=== PATIENT | female | born 1985 | race Caucasian/White ===

== ENCOUNTER 2019-06-21 12:45 | Emergency (ER) | payer BC, MEDICAID, OTHER ==
[2019-06-21 13:40] VITALS: BP 116/82
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
[2019-06-21 14:39] VITALS: PULSE 80
--- NOTE | 2019-06-21 14:41 | CR ---
Left elbow: 4 views left elbow were obtained. Comparison: No prior elbow study. Plate and screws are identified within the ulna compatible with old healed fracture. Joint spaces within the elbow are preserved. No joint effusion is identified. No acute fracture or other abnormality is appreciated. Impression: 1. Orthopedic hardware within the ulna. 2. Left elbow study is otherwise unremarkable. Diagnostic code #2 Study was dictated in [place] Standard Time
== END 2019-06-21 15:00 | disposition home or self-care (01) ==
LOC: JD.ED 12:45
DX: S50.02XA Contusion of left elbow, initial encounter (principal); S20.212A Contusion of left front wall of thorax, initial encounter; K21.9 Gastro-esophageal reflux disease without esophagitis; F17.210 Nicotine dependence, cigarettes, uncomplicated; Z79.899 Other long term (current) drug therapy; V47.5XXA Car driver injured in collision with fixed or stationary object in traffic accident, initial encounter
CPT/HCPCS: 73080-26-LT; 73080-LT; 99282; 99284-25

== ENCOUNTER 2019-07-10 09:06 | Emergency (ER) | payer BC ==
[2019-07-10 09:26] VITALS: BP 127/83; PULSE 108
--- NOTE | 2019-07-10 09:54 | EDM.PDOC ---
<Erin Marie - Last Filed: 07/10/19 09:45> ED HPI GENERAL MEDICAL PROBLEM - General Chief Complaint: Respiratory Problem Stated Complaint: FEVER/COUGH Time Seen by Provider: 07/10/19 09:30 Source of Information: Reports: Patient History Limitations: Reports: No Limitations - History of Present Illness INITIAL COMMENTS - FREE TEXT/NARRATIVE: Patient is a pleasant 33-year-old female who presents to the ED for complaints of a cough, chest tightness, fever, and plugged ears. She reports the cough started about eight days ago and has mainly been non-productive. She notes her chest has felt tight for the past four to five days and she has Fevers have been intermittent, with the highest temperature being 101 degrees. She last took Motrin last evening. Her ears now feel plugged and full. She reports a sore throat from the cough and nasal drainage, as well as a headache. She has tried Delsym, Motrin, and multiple home remedies with no relief of the cough. Denies chest pain, nausea, and vomiting. Of note, the patient's daughter was evaluated in the ED last evening and was diagnosed with pneumonia. Daughter's symptoms are the same as hers, but hers started a day or two before her daughter's. Chest Pain Score (Numeric/FACES): 2 - Related Data Allergies Allergy/AdvReac Type Severity Reaction Status Date / Time No Known Allergies Allergy Verified 07/10/19 09:26 Home Meds: Home Meds No122/Iron/Folic Acid [ Multi Tablet] 1 each PO DAILY 03/16/18 [History] Ranitidine [Zantac] 150 mg PO BID PRN 03/16/18 [History] Past Medical History - Past Health History Medical/Surgical History: Denies Medical/Surgical History Gastrointestinal History: Reports: GERD [employer] History: Reports: Ectopic , , Spontaneous Other [employer] History: 3 prior sections - Infectious Disease History Infectious Disease History: Reports: Chicken Pox, Influenza - Past Surgical History GI Surgical History: Reports: Cholecystectomy, Hernia Repair/Other Female Surgical History: Reports: Section, Tubal Ligation Musculoskeletal Surgical History: Reports: ORIF Social & Family History - Family History Family Medical History: Noncontributory Neurological: Reports: CVA Oncologic: Reports: Breast, Colon - Tobacco Use Smoking Status *Q: Current Every Day Smoker Years of Tobacco use: 10 Packs/Tins Daily: 0.4 - Caffeine Use Caffeine Use: Reports: Coffee - Recreational Drug Use Recreational Drug Use: No ED ROS GENERAL - Review of Systems Review Of Systems: See Below Constitutional: Reports: Fever, Chills. Denies: Weakness HEENT: Reports: Ear Pain (fullness), Sinus Problem (congestion/pain), Throat Pain. Denies: Vision Change Respiratory: Reports: Shortness of Breath (with coughing), Wheezing, Cough (non- productive) Cardiovascular: Reports: No Symptoms. Denies: Chest Pain, Edema, Lightheadedness, Syncope GI/Abdominal: Reports: No Symptoms. Denies: Abdominal Pain, Diarrhea, Nausea, Vomiting Musculoskeletal: Reports: No Symptoms. Denies: Neck Pain, Back Pain, Muscle Pain Skin: Reports: No Symptoms. Denies: Rash Neurological: Reports: Headache (occasional). Denies: Dizziness, Syncope, Weakness Psychiatric: Reports: No Symptoms ED EXAM, GENERAL - Physical Exam Exam: See Below Exam Limited By: No Limitations General Appearance: Alert, WD/WN, No Apparent Distress Eye Exam: Bilateral Eye: Normal Inspection, PERRL Ears: Normal External Exam, Normal Canal, Hearing Grossly Normal, Other ( bilateral effusions noted without erythema) Nose: Normal Inspection, Normal Mucosa, No Blood. No: Nasal Drainage Throat/Mouth: Normal Inspection, Normal Lips, Normal Teeth, Normal Gums, Normal Oropharynx, Normal Voice, Other (postnasal drainage) Head: Atraumatic, Normocephalic Neck: Normal Inspection, Supple, Non-Tender, Full Range of Motion Respiratory/Chest: No Respiratory Distress, No Accessory Muscle Use, Chest Non- Tender, Rhonchi (Right lower lobe), Wheezing (at end of expiration in bilateral upper lobes). No: Crackles, Rales, Stridor Cardiovascular: Normal Peripheral Pulses, Regular Rate, Rhythm, No Edema, No Murmur GI/Abdominal: Normal Bowel Sounds, Soft, Non-Tender, No Organomegaly, No Distention Back Exam: Normal Inspection, Full Range of Motion Extremities: Normal Inspection, Normal Range of Motion, Non-Tender, No Pedal Edema, Normal Capillary Refill Neurological: Alert, Oriented, Normal Cognition, No Motor/Sensory Deficits Psychiatric: Normal Affect, Normal Mood Skin Exam: Warm, Dry, Intact, Normal Color, No Rash Lymphatic: No Adenopathy Course - Vital Signs Last Recorded V/S: Last Vital Signs Temp 97.8 F 07/10/19 09:24 Pulse 108 H 07/10/19 09:24 Resp 18 07/10/19 09:24 BP 127/83 07/10/19 09:24 Pulse Ox 95 07/10/19 09:24 Departure - Departure Disposition: Home, Self-Care 01 Clinical Impression: Viral upper respiratory infection, Bronchitis - Discharge Information Instructions: Acute Bronchitis, Adult, [id number] Referrals: PCP,None [Primary Care Provider] - Forms: ED Department Discharge Additional Instructions: vaporizer or steam as needed,drink plenty of fluids to maintain hydration, you may safely continue to take Tylenol or Motrin as needed for discomfort. Prescription for a Zithromax and has been sent home with you. Do not fill that at this time. You may fill that in 3-5 days if cough becomes extremely productive or if cough worsening or not starting to improve within 3-5 days. Follow-up clinic as needed, return to ED as needed. Sepsis Event Note - Evaluation Sepsis Screening Result: No Definite Risk - Focused Exam Vital Signs: Vital Signs Temp Pulse Resp BP Pulse Ox 07/10/19 09:24 97.8 F 108 H 18 127/83 95 Date Exam was Performed: 07/10/19 Time Exam was Performed: 09:45 <Fish Al - Last Filed: 07/10/19 13:44> Course - Re-Assessments/Exams Free Text/Narrative Re-Assessment/Exam: 07/10/19 13:43 Initial history and exam was done by DIANE Du. I agree with her history and exam. Also examined and interviewed patient. Chest x-ray normal, no infiltrate. Discharge instructions as documented. Departure - Departure Time of Disposition: 10:18 Condition: Fair Sepsis Event Note - Focused Exam Date Exam was Performed: 07/10/19 Time Exam was Performed: 13:40
--- NOTE | 2019-07-10 11:05 | CR ---
Chest: Two views of the chest were obtained. Comparison: No previous chest x-ray. Heart size and mediastinum are normal. Lungs are clear. Deformity is noted within the lateral left chest compatible with old healed rib fractures. No acute bony abnormality is appreciated. Surgical clips are noted from prior cholecystectomy. Impression: 1. Old left-sided rib fractures which appear healed. 2. Nothing acute is seen. Diagnostic code #2 This report was dictated in [place] Standard Time
== END 2019-07-10 10:25 | disposition home or self-care (01) ==
LOC: JD.ED 09:06
DX: J06.9 Acute upper respiratory infection, unspecified (principal); J40 Bronchitis, not specified as acute or chronic; F17.210 Nicotine dependence, cigarettes, uncomplicated
CPT/HCPCS: 71046; 71046-26; 99283; 99283-25

== ENCOUNTER 2021-10-08 15:50 | Emergency (ER) | payer BC ==
[2021-10-08 16:02] VITALS: BP 119/67; PULSE 73
[2021-10-08] MEDS ORDERED: Ondansetron 4 MG/2 ML SDV IVPUSH ONE (16:07)
[2021-10-08] MEDS ORDERED: Sodium Chloride 0.9% 10 ML Syringe FLUSH PRN ×2 (16:07→16:28)
[2021-10-08] MEDS ORDERED: HYDROmorphone 1 MG/ML Syringe IVPUSH STA (16:07)
[2021-10-08] MEDS ORDERED: Sodium Chloride 0.9% 1,000 ML IV SCH (16:15)
[2021-10-08] MEDS ORDERED: Diatrizoate Meglumine/Diatrizoate Sodium 37% 120 ML Bottle PO ONE (16:28)
[2021-10-08] MEDS ORDERED: Iopamidol 612 MG/ML 100 ML Bottle IVPUSH ONE (16:28)
[2021-10-08] MEDS ORDERED: Metoclopramide 10 MG/2 ML SDV IVPUSH ONE (19:00)
== END 2021-10-08 19:13 | disposition home or self-care (01) ==
LOC: JD.ED 15:50
DX: R10.9 Unspecified abdominal pain (principal); R63.4 Abnormal weight loss; K21.9 Gastro-esophageal reflux disease without esophagitis; Z79.899 Other long term (current) drug therapy; Z68.28 Body mass index [BMI] 28.0-28.9, adult
CPT/HCPCS: 36415; 74177; 80053; 81001; 81025; 83690; 85025; 86140; 96361; 96374; 96375; 99284; J1170; J2405; J2765; J3490; J7030; Q9963; Q9967